=== PATIENT | female | born 1950 | race Caucasian/White ===

== ENCOUNTER 2016-02-24 11:59 | Emergency (ER) | payer MEDICARE, BC ==
[2016-02-24] MEDS ORDERED: SODIUM CHLORIDE 0.9% 1000ML 1,000 ML IV SCH (12:45)
[2016-02-24 13:00] LABS: BASOPHILS % (AUTO) 1 % (0-3); EOSINOPHILS % (AUTO) 0 % (0-9); HEMATOCRIT 44 % (35-47); MEAN CORPUSCULAR HGB CONC 36.2 gm/dl (32.0-36.0); MONOCYTES % (AUTO) 1.7 % (0-12); NEUTROPHILS % (AUTO) 89.4 % (37-80)
[2016-02-24] MEDS ORDERED: MECLIZINE HYDROCHLORIDE 12.5 MG TAB PO ONE (13:14)
[2016-02-24 13:16] LABS: ALBUMIN 4.3 gm/dl (3.4-5.0); ALT 36 IU/L (14-63); CALCIUM 9.3 mg/dl (8.5-10.1); GLOM FILT RATE 69 mL/min (>60); POTASSIUM 3.5 mMol/L (3.5-5.1); SODIUM 137 mMol/L (136-145)
[2016-02-24] MEDS ORDERED: MECLIZINE HYDROCHLORIDE 12.5 MG TAB ONE (13:24)
[2016-02-24] MEDS ORDERED: LORAZEPAM 2 MG/ML SOL IV ONE ×2 (13:52→16:32)
[2016-02-24] MEDS ORDERED: ONDANSETRON HCL 4 MG/2 ML SOL IV ONE (13:52)
[2016-02-24] MEDS ORDERED: ONDANSETRON HCL 4 MG/2 ML SOL ONE (14:04)
[2016-02-24] MEDS ORDERED: LORAZEPAM 2 MG/ML SOL ONE (14:05)
[2016-02-24] MEDS ORDERED: SODIUM CHLORIDE 0.9% 1000ML 1,000 ML IV ONE (14:17)
[2016-02-24 16:44] LABS: APPEARANCE,URINE Clear; BILIRUBIN,URINE NEGATIVE (NEGATIVE); COLOR,URINE Yellow; GLUCOSE, URINE (UA) NEGATIVE (NEGATIVE); KETONES,URINE NEGATIVE (NEGATIVE); LEUKOCYTE ESTERASE ,URINE NEGATIVE (NEGATIVE); NITRATE,URINE NEGATIVE (NEGATIVE); OCCULT BLOOD,URINE NEGATIVE (NEG-TRACE); UROBILINOGEN,URINE 0.2 (0.2-1.0 EU)
[2016-02-24 16:54] LABS: RBC,URINE NEGATIVE (0-3AV/HPF); WBC,URINE NEGATIVE (0-5AV/HPF)
[2016-02-24 17:30] VITALS: TEMP 98.9
[2016-02-24 17:34] VITALS: BP 128/73; PULSE 89; RESP 16; O2SAT 95
== END 2016-02-24 17:35 | disposition home or self-care (01) | DRG 149 ==
LOC: ED 11:59
DX: H81.10 Benign paroxysmal vertigo, unspecified ear (principal)
CPT/HCPCS: 70450; 80053; 81001; 84484; 85025; 93005; 99285; J2060; J2405

== ENCOUNTER 2017-05-07 13:13 | Day surgery (SDC) | payer MEDICARE, BC ==
[2017-05-07] MEDS ORDERED: BUPIVACAINE HCL 0.25% MPF 10 ML SOL INFIL ONE (13:49)
[2017-05-07] MEDS: DEXAMETHASONE SOD PHOS PF 10 MG/ML SOL IJ ONE ×2 (13:58→14:09)
[2017-05-07] MEDS ORDERED: LIDOCAINE HCL 1% MPF SOL ONE (14:04)
[2017-05-07 14:07] VITALS: RESP 20
[2017-05-07 14:11] VITALS: O2SAT 98
[2017-05-07 14:23] VITALS: BP 146/79; PULSE 106; TEMP 98.2
== END 2017-05-07 14:40 | disposition home or self-care (01) | DRG 552 ==
LOC: SURG 13:13
PROVIDERS: ATTEND Nurse Anesthetist, Certified Registered
DX: M48.062 Spinal stenosis, lumbar region with neurogenic claudication (principal)
CPT/HCPCS: J1100; J2001

== ENCOUNTER 2017-06-19 12:43 | Day surgery (SDC) | payer MEDICARE, BC ==
[2017-06-19] MEDS ORDERED: BUPIVACAINE HCL 0.25% MPF 10 ML SOL INFIL ONE (13:24)
[2017-06-19] MEDS ORDERED: DEXAMETHASONE SOD PHOS PF 10 MG/ML SOL IJ ONE (13:24)
[2017-06-19 13:35] VITALS: RESP 20
[2017-06-19] MEDS ORDERED: LIDOCAINE HCL 1% MPF SOL ONE (13:42)
[2017-06-19 14:04] VITALS: BP 138/89; PULSE 103; TEMP 99; O2SAT 97
== END 2017-06-19 15:55 | disposition home or self-care (01) | DRG 552 ==
LOC: SURG 12:43
PROVIDERS: ATTEND Nurse Anesthetist, Certified Registered
DX: M48.062 Spinal stenosis, lumbar region with neurogenic claudication (principal)
CPT/HCPCS: J1100; J2001

== ENCOUNTER 2017-08-05 12:50 | Day surgery (SDC) | payer MEDICARE, BC ==
[2017-08-05] MEDS ORDERED: BUPIVACAINE HCL 0.25% MPF 30 ML SOL INFIL ONE (14:03)
[2017-08-05] MEDS ORDERED: DEXAMETHASONE SOD PHOS PF 10 MG/ML SOL IJ ONE (14:03)
[2017-08-05 14:43] VITALS: BP 136/70; PULSE 100; RESP 20; TEMP 98.6; O2SAT 96
== END 2017-08-05 15:00 | disposition home or self-care (01) | DRG 552 ==
LOC: SURG 12:50
PROVIDERS: ATTEND Nurse Anesthetist, Certified Registered
DX: M48.07 Spinal stenosis, lumbosacral region (principal)
CPT/HCPCS: J1100

== ENCOUNTER 2017-08-08 17:37 | Emergency (ER) | payer MEDICARE, BC ==
[2017-08-08 17:55] VITALS: TEMP 98.4
[2017-08-08 17:57] LABS: BASOPHILS % (AUTO) 2 % (0-3); EOSINOPHILS % (AUTO) 2 % (0-9); HEMATOCRIT 40 % (35-47); LYMPHOCYTES % (AUTO) 27.2 % (10-50); MEAN CORPUSCULAR HEMOGLOBIN 33.9 pg (27.0-32.0); MEAN CORPUSCULAR HGB CONC 37.4 gm/dl (32.0-36.0); MEAN CORPUSCULAR VOLUME 91 fL (81-99); MONOCYTES % (AUTO) 6.3 % (0-12); NEUTROPHILS % (AUTO) 62.9 % (37-80)
[2017-08-08 18:08] LABS: NORMAL RBCS PRESENT
[2017-08-08 18:16] LABS: ALBUMIN 4.2 gm/dl (3.4-5.0); ALKALINE PHOSPHATASE 73 IU/L (46-116); ALT 29 IU/L (14-63); AST 20 IU/L (15-37); BILIRUBIN,TOTAL 0.3 mg/dl (0.2-1.0); BLOOD UREA NITROGEN 15 mg/dl (7-18); CALCIUM 9.7 mg/dl (8.5-10.1); CARBON DIOXIDE 27.7 mEq/L (21-32); CHLORIDE 99 mMol/L (98-107); CREATININE 0.98 mg/dl (0.60-1.00); GLOM FILT RATE 57 mL/min (>60); GLUCOSE 90 mg/dl (74-106); POTASSIUM 3.6 mMol/L (3.5-5.1); SODIUM 135 mMol/L (136-145); THYROID STIMULATING HORMONE 4.484 uIU/ml (0.358-3.740); TOTAL PROTEIN 7.4 gm/dl (6.4-8.2); TROP I < 0.017 ng/ml (0.000-0.056)
[2017-08-08 18:51] VITALS: BP 158/81; PULSE 89; RESP 18; O2SAT 98
== END 2017-08-08 18:50 | disposition home or self-care (01) | DRG 310 ==
LOC: ED 17:37
DX: I49.9 Cardiac arrhythmia, unspecified (principal); E03.9 Hypothyroidism, unspecified
CPT/HCPCS: 36415; 71045; 80053; 84443; 84484; 85025; 93005; 99283; 99284

== ENCOUNTER → 2018-01-20 | Day surgery (SDC) | payer MEDICARE, BC ==
[~2018-01-20] MED LIST: ACETAZOLAMIDE 250 MG PO ONE; BSS 500 ML 500 ML IR ONE; FENTANYL 100MCG/2ML SOL ONE; IMPRIMIS ONE; LIDOCAINE HCL 1% MPF 30 SOL ONE; MIDAZOLAM 2 MG/2 ML SOL ONE; POVIDONE IODINE 5% SOL ONE
[2018-01-20] MEDS: TETRACAINE HCL 0.5 % 1 DROP SOL ONE ×3 (09:09→10:16)
[2018-01-20] MEDS: PHENYLEPHRINE HCL 10% OPHTHAL SOL ONE ×2 (09:10→09:22)
[2018-01-20] MEDS: CYCLOPENTOLATE 1% SOL ONE ×2 (09:10→09:22)
[2018-01-20] MEDS: KETOROLAC 0.5% OPTH 60 DROP SOL ONE ×2 (09:10→09:22)
[2018-01-20 10:51] VITALS: BP 126/87; PULSE 85; RESP 20; TEMP 97.6; O2SAT 97
== END | disposition home or self-care (01) | DRG 125 ==
LOC: SURG 08:52
PROVIDERS: ATTEND Ophthalmology
DX: H25.89 Other age-related cataract (principal)
CPT/HCPCS: J2250; J3010; A9270-GY; J2001